=== PATIENT | male | born 1965 | race Caucasian/White ===

== ENCOUNTER 2022-07-11 20:07 | Emergency (ER) | payer OTHER ==
[~2022-07-11] VITALS: Ht 188 cm; Wt 104.3 kg
[2022-07-11 20:10] VITALS: BP_SYST 170
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
--- NOTE | 2022-07-11 20:20 | NUR ---
Dr Mendosa evaluating patient at bedside
[2022-07-11] MEDS ORDERED: LIDOCAINE VISCOUS 2%, 15 ML UDC MM ONE (21:15)
--- NOTE | 2022-07-11 21:21 | NUR ---
PT MEDICATED PER MD ORDER. SEE eMAR.
[2022-07-11] MEDS ORDERED: FAMO20TA8 PO (21:30)
[2022-07-11] MEDS ORDERED: DIPH25CA83 PO (21:30)
[2022-07-11 22:13] VITALS: BP_SYST 133
--- NOTE | 2022-07-11 22:14 | NUR ---
Patient given written and verbal discharge instructions and verbalizes understanding. ER MD discussed with patient the results and treatment provided. Patient in stable condition. ID arm band removed. Rx of Benadryl and Pepcid given. Patient educated on pain management and to follow up with PMD. Pain Scale 0/10. Opportunity for questions provided and answered. Medication side effect fact sheet provided.
== END 2022-07-11 22:13 | disposition home or self-care (01) ==
LOC: SED 20:07
DX: T63.441A Toxic effect of venom of bees, accidental (unintentional), initial encounter (principal); R06.02 Shortness of breath; Z79.899 Other long term (current) drug therapy; Y92.89 Other specified places as the place of occurrence of the external cause
CPT/HCPCS: 99283; 93005; J2001